=== PATIENT | female | born 1995 | race Caucasian/White ===

== ENCOUNTER → 2021-02-23 | Outpatient (CLI) | payer OTHER ==
[~2021-02-23] MED LIST: B-100 COMPLEX100 MG PO; PRENATAL TABLE1 EAC2 PO
== END | disposition home or self-care (01) ==
LOC: LAB SHORT 11:24
DX: Z36.89 Encounter for other specified antenatal screening (principal)
CPT/HCPCS: 87081; 87150

== ENCOUNTER 2021-03-21 20:50 | Inpatient (IN) | payer SELFPAY ==
[~2021-03-21] VITALS: Ht 165.1 cm; Wt 74.8 kg
[2021-03-21 22:05] LABS: BASOPHILS ABSOLUTE AUTO 0.01 K/mm3 (0.00-0.23); BASOPHILS PERCENT AUTO 0 % (0-2); EOSINOPHILS ABSOLUTE AUTO 0.03 K/mm3 (0.00-0.68); EOSINOPHILS PERCENT AUTO 0 % (0-6); Hematocrit 35.2 % (33.0-51.0); Hemoglobin 11.3 g/dL (11.5-16.0); IMMATURE GRAN ABSOLUTE AUTO 0.03 K/mm3 (0.00-0.10); IMMATURE GRAN PERCENT AUTO 0 % (0-1); LYMPHOCYTES ABSOLUTE AUTO 3.01 K/mm3 (0.84-5.20); LYMPHOCYTES PERCENT AUTO 28 % (21-46); MONOCYTES ABSOLUTE AUTO 0.72 K/mm3 (0.16-1.47); MONOCYTES PERCENT AUTO 7 % (4-13); Mean Corpuscular HGB 25.8 pg (26.0-34.0); Mean Corpuscular HGB Conc 32.1 g/dL (31.5-36.5); Mean Corpuscular Volume 80 fL (80-100); Mean Platelet Volume 12.2 fL (9.1-12.4); NEUTROPHILS ABSOLUTE AUTO 7.09 K/mm3 (1.96-9.15); NEUTROPHILS PERCENT AUTO 65 % (41-73); Platelet Count 198 K/mm3 (150-400); RDW Coefficient Variation 15.5 % (11.7-14.2); RDW Standard Deviation 44.9 fL (35.1-46.3); Red Blood Cell Count 4.38 M/mm3 (3.80-5.20); White Blood Cell Count 10.89 K/mm3 (4.00-11.30)
[2021-03-21 22:58] LABS: SARS-Cov-2 (COVID-19) PCR, MMC NEGATIVE (NEGATIVE)
[2021-03-21] MEDS ORDERED: PRENATAL TABLE1 EAC2 PO (23:21)
[2021-03-21] MEDS ORDERED: B-100 COMPLEX100 MG PO (23:22)
[2021-03-22 10:05] LABS: Hematocrit 29.7 % (33.0-51.0); Hemoglobin 9.5 g/dL (11.5-16.0); Mean Corpuscular Volume 81 fL (80-100); Mean Platelet Volume 10.8 fL (9.1-12.4); Platelet Count 241 K/mm3 (150-400); RDW Coefficient Variation 15.5 % (11.7-14.2); RDW Standard Deviation 45.1 fL (35.1-46.3); Red Blood Cell Count 3.66 M/mm3 (3.80-5.20); White Blood Cell Count 11.75 K/mm3 (4.00-11.30)
--- NOTE | 2021-03-22 18:49 | NUR ---
DISCHARGE INSTRUCTIONS, WRITTEN AND VERBAL GIVEN TO PT AND . ANSWERED ALL QUESTIONS AND CONCERNS. IV DISCONTINUED. WRITTEN PRESCRIPTION HANDED TO PT. PT READY FOR FOLLOW UP APPOINTMENT TO BE SCHEDULED.
--- NOTE | 2021-03-24 16:25 | NUR ---
PPFU. PT DECLINED TO COME TO PPFU AT HOSPITAL DUE TO PANDEMIC, RN TALKED W/ PT OVER THE PHONE. 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 PT HAD A BM TODAY, STATES HER VAGINAL BLEEDING IS GETTING OUTSIDE SAL[employer] IN [place] AND IS RED & PINK IN COLOR. PT DENIES HEADACHE, BLURRED VISION, NUMBNESS OR TINGLING, OR SWELLING. PT IS TAKING A PNV. FURTHER LC OFFERED IF PT DESIRES. PT DENIES QUESTIONS OR CONCERNS. AT THIS TIME.
== END 2021-03-22 22:00 | disposition home or self-care (01) | DRG 807 ==
LOC: OBS 20:50 → BC 20:51 → OBS 21:03 → BC 21:08
PROVIDERS: ADMIT Advanced Practice Midwife
PROC: 10E0XZZ Delivery of Products of Conception, External Approach (ICD-10-PCS; principal; 2021-03-21)
PROC: 3E0134Z Introduction of Serum, Toxoid and Vaccine into Subcutaneous Tissue, Percutaneous Approach (ICD-10-PCS; 2021-03-22)
DX: O48.0 Post-term pregnancy (principal); Z37.0 Single live birth; O62.3 Precipitate labor; O69.81X0 Labor and delivery complicated by cord around neck, without compression, not applicable or unspecified; Z20.822 Contact with and (suspected) exposure to COVID-19; O99.844 Bariatric surgery status complicating childbirth; O71.89 Other specified obstetric trauma; Z3A.40 40 weeks gestation of pregnancy; Z23 Encounter for immunization
CPT/HCPCS: 36415; 85025; 85027; 86850; 86900; 86901; 90471; 90707; A9270; J2590; U0004